=== PATIENT | male | born 2000 | race Two or more races ===

== ENCOUNTER 2023-10-07 10:26 | Inpatient (IN) ==
[2023-10-07 11:04] LABS: Basophils # (auto) 0.04 K/uL (0.00-0.20); Basophils % (auto) 0.5 %; Eosinophils # (auto) 0.04 K/uL (0.00-0.50); Eosinophils % (auto) 0.5 %; Hematocrit (blood only) 44.3 % (42.0-52.0); Hemoglobin 14.6 g/dl (14.0-18.0); Immature Granulocytes # (auto) 0.02 K/uL (0.01-0.20); Immature Granulocytes % (auto) 0.2 %; Lymphocytes # (auto) 1.71 K/uL (1.20-3.40); Lymphocytes % (auto) 19.8 %; Mean Corpuscular Hemoglobin 26.8 pg (25.0-34.0); Mean Corpuscular Volume 81.3 fL (80.0-100.0); Mean Platelet Volume 9.9 fL (9.4-12.4); Monocytes # (auto) 0.71 K/uL (0.11-0.59); Monocytes % (auto) 8.2 %; Neutrophils % (auto) 70.8 %; Platelet Count 243 K/uL (130-400); RDW Standard Deviation 37.9 fL (36.4-46.3); Red Blood Count 5.45 M/uL (4.70-6.10); White Blood Count 8.62 K/ul (4.8-10.8)
[2023-10-07 11:54] LABS: Alanine Aminotransferase 482 U/L (7-52); Albumin Globulin Ratio 1.4 (0.9-2); Albumin Level 4.2 gm/dl (3.4-5.0); Alkaline Phosphatase 49 U/L (34-104); Anion Gap 5 (3-11); BUN Creatinine Ratio 10.9 (10-20); Bilirubin,Total 0.6 mg/dl (0.2-1.0); Blood Urea Nitrogen 12 mg/dl (6-23); Calcium 9.4 mg/dl (8.6-10.3); Carbon Dioxide 25 mmol/L (21-32); Chloride 107 mmol/L (98-107); Creatine Kinase > 100000 U/L (30-223); Creatinine Clr Calc Pharmacy 107.8 ml/min; Est GFR (African American) 109.1 ml/min; Est GFR (Non-African American) 94.1 ml/min; Globulin 3.1 gm/dl (2.5-4.0); Glucose 98 mg/dl (70-99(Fasting)); Lipase 16 U/L (11-82); Sodium 137 mmol/L (136-145); Total Protein 7.3 gm/dl (6.0-8.3)
[2023-10-07] MEDS: SODIUM CHLORIDE 0.9% 1,000 ML IV SCH ×2 (12:19→14:47)
[2023-10-07] MEDS: SODIUM CHLORIDE 0.9% 1,000 ML IV ONE (12:19)
--- NOTE | 2023-10-07 12:40 | History & Physical Report ---
Date of Service October 07, 2023 Assessment & Plan (1) Rhabdomyolysis: Plan: This is a 22yo M with no known PMH presenting from [facility] with with muscle stiffness in lower legs and complaints of urinating blood starting this morning with labwork consistent with rhabdomyolysis. Rhabdomyolysis From rigorous exercise yeserday CK >100,000, Cr 1.10 (baseline unknown), transaminitis as below, UA with 3+ blood and trace protein Received 2L NSS bolus in ED, will continue fluids at 200ml/hr Discussed with Dr. Shearer- as long as making adequate urine, no need to start lasix yet Strict I&Os Repeat BMP, CK, mag and phos this afternoon (2) Transaminitis: Plan: AST 1869 -> 2026, ALT 447 -> 482 in setting of rhabdo as above Repeat CMP in AM (3) Insomnia: Plan: Lizandro BOJORQUEZ per outpatient meds. Denies h/o mood disorder DVT Ppx: early ambulation Code status: FULL PCP: CARTER Woodard Dispo: Admitted to PCU Patient seen in collaboration with Dr. Stephens. Please see addendum. I spent a total of 75 minutes coordinating, documenting, and providing care for this patient excluding time spent in the performance of separately billed services. History of Present Illness Chief Complaint: leg pain, hematuria Primary Care Provider: CARTER Woodard This is a 22yo M with no known PMH presenting from [facility] with with muscle stiffness in lower legs and complaints of urinating blood starting this morning. Patient out for the first time in 2 months yesterday and did a hard workout. Since then, he developed dark urine and aching in both legs. Denies any F/C, headache, CP, SOB, N/V, abd pain, dysuria, diarrhea or constipation. Only medication he takes is Seandon HS to help with sleep, per patient. Denies smoking history while incarcerated. Allergies Allergy/AdvReac Type Severity Reaction Status Date / Time No Known Allergies Allergy Unverified 10/07/23 12:48 Home Medications Medication Instructions Recorded Confirmed Type ziprasidone HCl 20 mg capsule 20 mg PO HS 10/07/23 10/07/23 History (Lizandro) Past Med/Surg History Medical History (Updated 10/07/23 @ 14:44 by Gabbi Covington PA-C) No pertinent past medical history Insomnia Surgical History No pertinent past surgical history Family History Other Diabetes Hypertension Social History Smoking Status: Never smoker Hx Alcohol Use: No Hx Substance Use: No Feels Safe at Home: Yes Review of Systems Review of Systems: At least ten systems reviewed and negative except as noted in the HPI. Physical Exam Physical Exam: Please see Dr. Stephens' addendum for physical exam. Results & Data Results & Data Vital Signs (Past 12 Hours) Vital Signs Temp Pulse Pulse Resp BP BP Pulse Ox 10/07/23 12:21 72 16 161/94 H 98 10/07/23 10:30 36.6 C 91 H 20 165/104 H 99 O2 Del Method 10/07/23 12:21 Room Air 10/07/23 10:30 Room Air Laboratory Results Short CBC 10/07/23 Range/Units 10:45 WBC 8.62 (4.8-10.8) K/ul Hgb 14.6 (14.0-18.0) g/dl Hct 44.3 (42.0-52.0) % Plt Count 243 (130-400) K/uL BMP 10/07/23 10/07/23 10:45 12:04 Sodium 137 Potassium TNP 4.3 Chloride 107 Carbon Dioxide 25 BUN 12 Creatinine 1.10 Glucose 98 Calcium 9.4 Cardiac Enzymes 10/07/23 Range/Units 10:45 Total Creatine Kinase > 666852 H (30-223) U/L Liver Function 10/07/23 Range/Units 10:45 Total Bilirubin 0.6 (0.2-1.0) mg/dl AST TNP ALT 482 H (7-52) U/L Alkaline Phosphatase 49 (34-104) U/L Albumin 4.2 (3.4-5.0) gm/dl Urine 10/07/23 Range/Units Unknown Urine Color Yellow Urine Appearance Clear (Clear) Urine pH 7.0 (4.5-7.5) Ur Specific [place] 1.005 (1.000-1.030) Urine Protein Trace H (Negative) Urine Glucose (UA) Negative (Negative) Code Status & VTE Plan VTE Prophylaxis Plan VTE Prophylaxis will be ordered: Yes Supervising Physician Co-Signing Physician Notes I have seen and discussed the case with the collaborating advanced practitioner. I agree with the above H&P. I have reviewed and confirmed the patients medical history, the findings on physical examination, and the patients diagnosis and treatment plan with Adria MAE and agree with the information documented. In short, Mr. Castle is a 22 year old gentleman with no significant medical history who is admitted due to rhabdomyolysis. Patient reports starting to work out after 2 months hiatus--followed by severe leg pain and what appeared to be hematuria. Labs revealed high CK >100,000 UA with blood no RBC, Cr at 1.1 no baseline. GENERAL APPEARANCE: AxOx4, generally well-appearing male no acute distress. HEENT: NC, AT. MMM. EOMI, clear conjunctiva, oropharynx clear. NECK: Supple without lymphadenopathy. No stiffness or restricted ROM. HEART: Normal rate and regular rhythm, normal S1/S1, no m/r/g LUNGS: CTAB, moving air well. No crackles or wheezes are heard. ABDOMEN: Soft, nontender, nondistended with good bowel sounds heard. EXTREMITIES: Without cyanosis, clubbing or edema. NEUROLOGICAL: Grossly nonfocal. Alert and oriented, moving all 4 extremities. CN not formally tested but appear grossly intact. Observed to ambulate with normal gait. Skin: Warm and dry without any rash. : #Severe nontraumatic rhabdomyolysis secondary to increased exertion -IVF @200cc/hour for aggressive hydration Repeat CK and BMP this afternoon Trend am CK Nephrology on consult Monitor Strict I/Os--if urine output less than.5ml/hr, add IV lasix Rest of plan as above I spent a total of 25 minutes coordinating, documenting, and providing care for this patient excluding time spent in the performance of separately billed s ervices. All of the aforementioned completed outside of collaborating with the assigned advanced practitioner for a full treatment plan. I have reviewed the advanced practitioner's documentation, and I agree with, and take responsibility for the plan of care
[2023-10-07 12:59] LABS: Potassium 4.3 mmol/L (3.5-5.1)
[2023-10-07 13:04] LABS: Appearance Urine Clear (Clear); Bacteria Urine Automated None Seen (None Seen); Bilirubin Urine Negative (Negative); Blood Urine 3+ (Negative); Cast Urine Automated 0-2 /lpf (0-2); Color Urine Yellow; Epithelial Cell Urine Auto 0-2 /hpf (0-2); Glucose Urine UA Negative (Negative); Ketones Urine Negative (Negative); Leukocyte Esterase Urine Negative (Negative); Nitrite Urine Negative (Negative); Protein Urine Trace (Negative); RBC Urine Automated 0-2 /hpf (0-2); Specific Gravity Urine 1.005 (1.000-1.030); Urobilinogen Urine Negative (Negative); WBC Urine Automated 0-5 /hpf (0-5)
[2023-10-07 13:39] LABS: Magnesium 2.3 mg/dl (1.7-2.4); Phosphorus 4.1 mg/dl (2.5-4.9)
[2023-10-07] MEDS ORDERED: ACETAMINOPHEN 325 MG TAB PO PRN (15:44)
[2023-10-07] MEDS ORDERED: ONDANSETRON INJ 2 MG/ML 2 ML VIAL IV PRN (15:44)
[2023-10-07 17:17] LABS: Anion Gap 3 (3-11); BUN Creatinine Ratio 8.5 (10-20); Blood Urea Nitrogen 10 mg/dl (6-23); Calcium 8.8 mg/dl (8.6-10.3); Carbon Dioxide 29 mmol/L (21-32); Chloride 110 mmol/L (98-107); Creatinine Clr Calc Pharmacy 101.4 ml/min; Est GFR (African American) 101.2 ml/min; Est GFR (Non-African American) 87.4 ml/min; Glucose 94 mg/dl (70-99(Fasting)); Potassium 4.6 mmol/L (3.5-5.1); Sodium 142 mmol/L (136-145)
[2023-10-07 17:34] LABS: Magnesium 2.2 mg/dl (1.7-2.4); Phosphorus 3.4 mg/dl (2.5-4.9)
[2023-10-07 18:00] LABS: Creatine Kinase > 100000 U/L (30-223)
[2023-10-07] MEDS ORDERED: LABETALOL HCL IV 5 MG/ML 20ML IV PRN (18:58)
--- NOTE | 2023-10-07 21:25 | Emergency Department Note ---
History of Present Illness General Chief complaint: Hematuria Stated complaint: BLOOD IN URINE, RIGHT AND LEFT LEG SWELLING Time Seen by Provider: 10/07/23 10:59 History of Present Illness Provider complaint: Hematuria rhabdomyolysis 22-year-old male inmate presents to the emergency in police custody for hematuria and rhabdomyolysis. Patient reports he was doing a very hard workout while in senior care the other day. No falls or traumas. He states he is having severe muscle aches and has been urinating blood. Retirement physician referred the patient in for elevated CK. Home Medications Medication Instructions Recorded Confirmed Type ziprasidone HCl 20 mg capsule 20 mg PO HS 10/07/23 10/07/23 History (Lizandro) Allergies Allergy/AdvReac Type Severity Reaction Status Date / Time No Known Allergies Allergy Unverified 10/07/23 12:48 Past Med/Surg History Medical History No pertinent past medical history Insomnia Surgical History No pertinent past surgical history Family History Other Diabetes Hypertension Social History Smoking Status: Never smoker Hx Alcohol Use: No Hx Substance Use: No Feels Safe at Home: Yes Physical Exam Vital Signs Vital Signs - 24 hr 10/07/23 10:30 10/07/23 12:21 Temperature 36.6 C Temperature Source Temporal Artery Scan Pulse Rate 91 H Pulse Rate [Finger] 72 Respiratory Rate 20 16 Respiratory Effort / Characteristics Non-Labored Non-Labored Spontaneous Respiratory Depth Normal Normal Respiratory Pattern Regular Blood Pressure 165/104 H Blood Pressure [Right Arm] 161/94 H Blood Pressure Mean 124 Blood Pressure Mean [Right Arm] 116 Pulse Oximetry 99 98 Oxygen Delivery Method Room Air Room Air Sepsis Recent Fever Within 48 Hours No Sepsis New/Unexplained Change in Mental Status No Sepsis Action Taken by Nursing No Action Required Physical Exam GENERAL: oriented to person, place, and time. appears well-developed and well- nourished. Patient in handcuffs with correctional officers at bedside. HENT: Exam performed. - Head: Normocephalic and atraumatic. EYES: Conjunctivae and EOM are normal. Right eye exhibits no discharge. Left eye exhibits no discharge. No scleral icterus. NECK: Normal range of motion. Neck supple. No JVD present. CV: Normal rate, regular rhythm, normal heart sounds and intact distal pulses. There is no peripheral edema. Palpable radial pulses bue. PULM/CHEST: Effort normal and breath sounds normal. No respiratory distress. No stridor. no wheezes. no rales. ABD: The abdomen is soft. There is no tenderness. NEURO: Motor and sensation grossly intact. SKIN: Skin is warm and dry. He is not diaphoretic. PSYCH: normal mood and affect. Behavior is normal. Judgment and thought content normal. Course Course 1059: The patient was evaluated in room B8. A complete history and physical exam was performed Administered Medications Sodium Chloride (Nss) 1,000 mls @ 200 mls/hr IV .Q5H HAYDEE Stop: 11/06/23 13:44 Last Admin: 10/07/23 20:01 Dose: 200 mls/hr Documented By: [facility] Infusion: 10/07/23 19:47 Dose: Infused Documented By: [facility] Admin: 10/07/23 14:47 Dose: 200 mls/hr Documented By: Discontinued Medications Sodium Chloride (Nss) 1,000 mls @ 999 mls/hr IV .Q1H1M HAYDEE Stop: 10/07/23 13:45 Last Infusion: 10/07/23 14:19 Dose: Infused Documented By: Admin: 10/07/23 13:48 Dose: 999 mls/hr Documented By: Infusion: 10/07/23 13:20 Dose: Infused Documented By: Admin: 10/07/23 12:19 Dose: 999 mls/hr Documented By: Sodium Chloride (Nss) 1,000 mls @ 999 mls/hr IV .Q1H1M ONE Stop: 10/07/23 13:00 Last Infusion: 10/07/23 13:48 Dose: Infused Documented By: Admin: 10/07/23 12:19 Dose: 999 mls/hr Documented By: Medical Decision Making Laboratory Data Attestation: I reviewed the patient's lab results. 10/07/23 10:45 10/07/23 16:43 Lab Results 10/07/23 10/07/23 10/07/23 Range/Units 10:45 12:04 12:15 WBC 8.62 (4.8-10.8) K/ul RBC 5.45 (4.70-6.10) M/uL Hgb 14.6 (14.0-18.0) g/dl Hct 44.3 (42.0-52.0) % MCV 81.3 (80.0-100.0) fL MCH 26.8 (25.0-34.0) pg MCHC 33.0 (32.0-36.0) g/dL RDW Std Deviation 37.9 (36.4-46.3) fL RDW Coeff of Fadi 13.0 (11.5-14.5) % Plt Count 243 (130-400) K/uL MPV 9.9 (9.4-12.4) fL Immature Gran % (Auto) 0.2 % Neut % (Auto) 70.8 % Lymph % (Auto) 19.8 % [place] % (Auto) 8.2 % Eos % (Auto) 0.5 % Baso % (Auto) 0.5 % Neut # (Auto) 6.10 (1.40-6.50) K/uL Lymph # (Auto) 1.71 (1.20-3.40) K/uL [place] # (Auto) 0.71 H (0.11-0.59) K/uL Eos # (Auto) 0.04 (0.00-0.50) K/uL Baso # (Auto) 0.04 (0.00-0.20) K/uL Immature Gran # (Auto) 0.02 (0.01-0.20) K/uL Sodium 137 (136-145) mmol/L Potassium TNP 4.3 Chloride 107 (98-107) mmol/L Carbon Dioxide 25 (21-32) mmol/L Anion Gap 5 (3-11) BUN 12 (6-23) mg/dl Creatinine 1.10 (0.6-1.4) mg/dl Est Cr Clr Drug Dosing 107.8 ml/min Est GFR ( Amer) 109.1 ml/min Est GFR (Non-Af Amer) 94.1 ml/min BUN/Creatinine Ratio 10.9 (10-20) Glucose 98 (70-99(Fasting)) mg/dl Calcium 9.4 (8.6-10.3) mg/dl Phosphorus 4.1 (2.5-4.9) mg/dl Magnesium 2.3 (1.7-2.4) mg/dl Total Bilirubin 0.6 (0.2-1.0) mg/dl AST TNP 2027 H ALT 482 H (7-52) U/L Alkaline Phosphatase 49 (34-104) U/L Total Creatine Kinase > 071678 H (30-223) U/L Total Protein 7.3 (6.0-8.3) gm/dl Albumin 4.2 (3.4-5.0) gm/dl Globulin 3.1 (2.5-4.0) gm/dl Albumin/Globulin Ratio 1.4 (0.9-2) Lipase 16 (11-82) U/L MDM Narrative Vital signs stable. Labs show a CK greater 100,000. Creatinine 1.1. Patient aggressively hydrated with 3 L normal saline bolus and [facility] Impression & Plan Rhabdomyolysis Discharge Plan Visit Data Chief Complaint: Hematuria Stated Complaint: BLOOD IN URINE, RIGHT AND LEFT LEG SWELLING ED Provider: uAstin Don Discharge Problem: Rhabdomyolysis Patient Disposition: Admitted As Inpatient Discharge Instructions Interventions: ED Discharge Assessment Last Done: 10/07/23 15:44 Discharge Problem: Rhabdomyolysis Qualifiers: Rhabdomyolysis type: non-traumatic Qualified Code(s): M62.82 - Rhabdomyolysis
[2023-10-08 04:08] LABS: Hematocrit (blood only) 38.9 % (42.0-52.0); Hemoglobin 12.8 g/dl (14.0-18.0); Mean Corpuscular Hemoglobin 26.7 pg (25.0-34.0); Mean Corpuscular Hgb Conc 32.9 g/dL (32.0-36.0); Mean Corpuscular Volume 81.2 fL (80.0-100.0); Mean Platelet Volume 9.7 fL (9.4-12.4); Platelet Count 213 K/uL (130-400); RDW Coefficient of Variation 12.9 % (11.5-14.5); RDW Standard Deviation 38.1 fL (36.4-46.3); Red Blood Count 4.79 M/uL (4.70-6.10)
[2023-10-08 04:16] LABS: Alanine Aminotransferase 379 U/L (7-52); Albumin Globulin Ratio 1.3 (0.9-2); Albumin Level 3.5 gm/dl (3.4-5.0); Alkaline Phosphatase 41 U/L (34-104); Anion Gap 7 (3-11); BUN Creatinine Ratio 10.6 (10-20); Bilirubin,Total 0.4 mg/dl (0.2-1.0); Blood Urea Nitrogen 12 mg/dl (6-23); Calcium 8.7 mg/dl (8.6-10.3); Carbon Dioxide 24 mmol/L (21-32); Chloride 109 mmol/L (98-107); Est GFR (African American) 105.6 ml/min; Est GFR (Non-African American) 91.1 ml/min; Globulin 2.6 gm/dl (2.5-4.0); Glucose 98 mg/dl (70-99(Fasting)); Magnesium 1.9 mg/dl (1.7-2.4); Phosphorus 4.4 mg/dl (2.5-4.9); Potassium 3.9 mmol/L (3.5-5.1); Sodium 140 mmol/L (136-145); Total Protein 6.1 gm/dl (6.0-8.3)
[2023-10-08 04:37] LABS: Aspartate Aminotransferase 1387 U/L (13-39)
[2023-10-08 05:25] LABS: Creatine Kinase > 100000 U/L (30-223)
--- NOTE | 2023-10-08 11:16 | Nephrology Consultation ---
Date of Consultation October 08, 2023 Assessment & Plan (1) Rhabdomyolysis: Despite CK of > 100 K he is not any renal issues. I gues young age no Comorbid disease gave him that cushion !!! Good urine output and good renal function and electrolytes. The danger phase is gone and expect CK to come down. However his level is still very high and we need to continue the high iv fluid rate to maintain high urine output. Check CK daily and renal panel and mag. I and O must be charted and they Should be similar. So far it is matching. History of Present Illness Attending Physician: Morgan Morales MD History of Present Illness 22/M from skilled nursing with no known PMH presented with with muscle stiffness in lower legs and complaints of urinating blood which started yesterday Morning. Patient for the first time in 2 months did a hard workout one day prior. Since then, he developed dark urine and aching in both legs. Found to have CK > 573148. but normal renal function. Since admission lot of iv fluids and lot of urine--matching I and O. renal panel still good. ROS---see HPI. Denies any F/C, headache, CP, SOB, N/V, abd pain, dysuria, diarrhea or constipation. Only medication he takes is Geodon HS to help with sleep, per patient. Denies smoking history while incarcerated. Physical Exam GENERAL: oriented to person, place, and time. Appears well-developed and well- nourished. HENT: MM moist. neck supple. No JVD. CV: Normal rate, regular rhythm, normal heart sounds. no peripheral edema. CHEST: Effort normal and breath sounds normal. No respiratory distress. No stridor. no wheezes. no rales. ABD: soft. There is no tenderness. NEURO: Motor and sensation grossly intact. SKIN: Skin is warm and dry. He is not diaphoretic. PSYCH: normal mood and affect. Behavior is normal. Judgment and thought content normal. 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 Required: No Feels Safe at Home: Yes Assistive Devices: None Results & Data Vital Signs (Past 12 Hours) Vital Signs Pulse Resp BP Pulse Ox O2 Del Method 10/08/23 07:18 85 10/08/23 06:00 84 18 128/82 96 Room Air 10/08/23 05:00 78 16 144/85 H 96 Room Air 10/08/23 04:00 81 18 136/72 95 Room Air 10/08/23 03:00 89 22 134/71 97 Room Air 10/08/23 02:00 76 16 117/60 95 Room Air 10/08/23 01:30 90 18 98 Room Air 10/08/23 01:14 82 21 144/78 H 96 10/08/23 01:00 82 20 144/78 H 97 Room Air 10/08/23 00:00 87 23 96 Room Air 10/07/23 23:30 87 27 H 97 Room Air Laboratory Results Reviewed Diagnostic Findings reviewed (1) Rhabdomyolysis Rhabdomyolysis type: non-traumatic Qualified Code(s): M62.82 - Rhabdomyolysis
--- NOTE | 2023-10-08 17:12 | Hospitalist Progress Note ---
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 He is making good amount of urine (2) Transaminitis: Plan: AST 1869 -> 2026, ALT 447 -> 482 in setting of rhabdo as above Repeat CMP in AM (3) Insomnia: Plan: Lizandro HS per outpatient meds. Denies h/o mood disorder DVT Ppx: Subcu Lovenox Disposition-pending medical stability. Continue IVF for significant rhabdomyolysis. Discharge back to shelter once stable Time spent-approximately 35 minutes Admission and Anticipated Discharge Date Admission Date: October 07, 2023 Subjective Patient was seen and examined at bedside. He feels better. The pain and stiffness has improved. He is making good amount of urine. No fever, chills, chest pain or shortness of, nausea or vomiting Review of Systems Review of Systems: All systems reviewed & are unremarkable except as noted in Subjective Physical Exam Physical Exam: General: Lying comfortably in bed, not in distress, on room air HEENT: EOMI, [place], MMM Chest: Clear breath sounds bilaterally, no wheezes or crackles CVS: Regular rate and rhythm, normal heart sounds, no murmur Abdomen: Soft, non tender, not distended, normal bowel sounds Neuro: Awake, alert, oriented, conversing well, non focal Extremities: No cyanosis, clubbing or edema Results & Data Results & Data Vital Signs (Past 12 Hours) Vital Signs Temp Pulse Pulse Resp BP BP Pulse Ox 10/08/23 15:24 37.1 C 94 H 16 149/90 H 98 10/08/23 13:00 83 18 134/80 97 10/08/23 07:18 85 10/08/23 06:00 84 18 128/82 96 O2 Del Method 10/08/23 15:24 Room Air 10/08/23 13:00 Room Air 10/08/23 07:18 10/08/23 06:00 Room Air (1) Rhabdomyolysis Rhabdomyolysis type: non-traumatic Qualified Code(s): M62.82 - Rhabdomyolysis
[2023-10-09 08:01] LABS: BUN Creatinine Ratio 11.1 (10-20); Calcium 8.8 mg/dl (8.6-10.3); Creatinine Clr Calc Pharmacy 115.2 ml/min; Est GFR (African American) 101.2 ml/min; Est GFR (Non-African American) 87.4 ml/min; Potassium 3.7 mmol/L (3.5-5.1)
[2023-10-09 08:08] LABS: Albumin Globulin Ratio 1.3 (0.9-2); Albumin Level 3.5 gm/dl (3.4-5.0); Bilirubin,Total 0.4 mg/dl (0.2-1.0); Globulin 2.6 gm/dl (2.5-4.0); Total Protein 6.1 gm/dl (6.0-8.3)
--- NOTE | 2023-10-09 09:31 | Nephrology Progress Note ---
Date of Service October 09, 2023 Assessment & Plan Admission and Anticipated Discharge Date Admission Date: October 07, 2023 Subjective Assessment & Plan (1) Rhabdomyolysis: Despite CK of > 100 K he is not any renal issues. I guess young age no Comorbid disease gave him that cushion !!! Good urine output and good renal function and electrolytes. The danger phase is gone and expect CK to come down. However his level is still very high and we need to continue the high iv fluid rate to maintain high urine output. Check CK daily and renal panel and mag. I and O must be charted and they Should be similar. So far it is matching. CK trending down but will likely take few days before safe enough to discharge S---No new issues. Lots of urine and not bloody now. labs getting better. Physical Exam GENERAL: oriented to person, place, and time. Appears well-developed and well- nourished. HENT: MM moist. neck supple. No JVD. CV: Normal rate, regular rhythm, normal heart sounds. no peripheral edema. CHEST: Effort normal and breath sounds normal. No respiratory distress. No stridor. no wheezes. no rales. ABD: soft. There is no tenderness. NEURO: Motor and sensation grossly intact. SKIN: Skin is warm and dry. He is not diaphoretic. PSYCH: normal mood and affect. Behavior is normal. Judgment and thought content normal. Results & Data Vital Signs (Past 12 Hours) Vital Signs Temp Pulse Pulse Resp BP Pulse Ox O2 Del Method 10/09/23 09:23 68 10/09/23 07:48 36.4 C L 88 16 135/81 96 Room Air 10/09/23 02:49 37.4 C 80 18 128/80 97 Room Air 10/08/23 22:20 37.3 C 84 18 137/89 99 Room Air
--- NOTE | 2023-10-09 11:30 | Hospitalist Progress Note ---
Date of Service October 09, 2023 Assessment & Plan (1) Rhabdomyolysis: Plan: 22yo M with no known PMH presenting from [facility] with with muscle stiffness in lower legs and complaints of bloody urine and labwork consistent with rhabdomyolysis. 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 Monitor UO. Trend labs - Nephro following. (2) Transaminitis: Plan: In setting of rhabdomyolysis. LFT trending down. AST 1869 -> 2027->1146 ALT 447 -> 482->360 Repeat CMP in AM (3) Insomnia: Plan: Lizandro HS per outpatient meds. Denies h/o mood disorder Plan DVT prophylaxis: Subcu Lovenox Disposition-pending medical stability. Continue IVF for significant rhabdomyolysis. Discharge back to group home once stable Time spent-approximately 35 minutes Admission and Anticipated Discharge Date Admission Date: October 07, 2023 Subjective Patient was seen and examined at bedside. Continues to feel better. Soreness improving. Making good urine. No more bloody. No fever, chills, chest pain, Shortness of breath, N/V. Review of Systems Review of Systems: All systems reviewed & are unremarkable except as noted in Subjective Physical Exam Physical Exam: General: Lying comfortably in bed, not in distress, on room air HEENT: EOMI, [place], MMM Chest: Clear breath sounds bilaterally, no wheezes or crackles CVS: Regular rate and rhythm, normal heart sounds, no murmur Abdomen: Soft, non tender, not distended, normal bowel sounds Neuro: Awake, alert, oriented, conversing well, non focal Extremities: No cyanosis, clubbing or edema Results & Data Results & Data Vital Signs (Past 12 Hours) Vital Signs Temp Pulse Pulse Resp BP Pulse Ox O2 Del Method 10/09/23 10:43 36.6 C 83 16 129/72 96 Room Air 10/09/23 09:23 68 10/09/23 07:48 36.4 C L 88 16 135/81 96 Room Air 10/09/23 02:49 37.4 C 80 18 128/80 97 Room Air (1) Rhabdomyolysis Rhabdomyolysis type: non-traumatic Qualified Code(s): M62.82 - Rhabdomyolysis
[2023-10-09] MEDS: POLYETHYLENE (MIRALAX) 17 GM PACK PO PRN (20:35)
[2023-10-10 06:17] LABS: BUN Creatinine Ratio 12.2 (10-20); Calcium 9.1 mg/dl (8.6-10.3); Creatinine Clr Calc Pharmacy 117.2 ml/min; Est GFR (African American) 103.4 ml/min; Est GFR (Non-African American) 89.2 ml/min; Potassium 3.8 mmol/L (3.5-5.1)
[2023-10-10 06:38] LABS: Albumin Globulin Ratio 1.3 (0.9-2); Albumin Level 3.5 gm/dl (3.4-5.0); Bilirubin,Total 0.6 mg/dl (0.2-1.0); Globulin 2.8 gm/dl (2.5-4.0); Total Protein 6.3 gm/dl (6.0-8.3)
--- NOTE | 2023-10-10 09:52 | Nephrology Progress Note ---
Date of Service October 10, 2023 Assessment & Plan Admission and Anticipated Discharge Date Admission Date: October 07, 2023 Subjective Assessment & Plan (1) Rhabdomyolysis: Despite CK of > 100 K he is not any renal issues. I guess young age no Comorbid disease gave him that cushion !!! Good urine output and good renal function and electrolytes. The danger phase is gone and expect CK to come down. However his level is still very high and we need to continue the high iv fluid rate to maintain high urine output. Check CK daily and renal panel and mag. I and O must be charted and they Should be similar. So far it is matching. CK and LFT trending down but will likely take few days before safe enough to discharge. S---No new issues. Lots of urine and not bloody now. labs getting better. Physical Exam GENERAL: oriented to person, place, and time. Appears well-developed and well- nourished. HENT: MM moist. neck supple. No JVD. CV: Normal rate, regular rhythm, normal heart sounds. no peripheral edema. CHEST: Effort normal and breath sounds normal. No respiratory distress. No stridor. no wheezes. no rales. ABD: soft. There is no tenderness. NEURO: Motor and sensation grossly intact. SKIN: Skin is warm and dry. He is not diaphoretic. PSYCH: normal mood and affect. Behavior is normal. Judgment and thought content normal. Results & Data Vital Signs (Past 12 Hours) Vital Signs Temp Pulse Resp BP BP Pulse Ox O2 Del Method 10/10/23 07:30 36.6 C 82 16 128/69 97 Room Air 10/10/23 03:25 36.6 C 84 20 152/89 H 96 Room Air 10/09/23 23:22 37.2 C 72 18 142/86 H 97 Room Air
--- NOTE | 2023-10-10 10:40 | Hospitalist Progress Note ---
Date of Service October 10, 2023 Assessment & Plan (1) Rhabdomyolysis: Plan: 22yo M with no known PMH presenting from [facility] with with muscle stiffness in lower legs and complaints of bloody urine and labwork consistent with rhabdomyolysis. 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 Monitor UO. Trend labs - Nephro following. (2) Transaminitis: Plan: In setting of rhabdomyolysis. LFT trending down. AST 1869 -> 2027->1146->750 ALT 447 -> 482->360->331 Repeat CMP in AM (3) Insomnia: Plan: Lizandro BOJORQUEZ per outpatient meds. Denies h/o mood disorder Plan DVT prophylaxis: Subcu Lovenox Disposition- CK still significantly elevated and on IVF. Discharge back to retirement likely on Thursday Time spent-approximately 35 minutes Admission and Anticipated Discharge Date Admission Date: October 07, 2023 Subjective Patient was seen and examined at bedside. Feeling better. Sore muscles resolved. No N/V. Urinating normally. Regular BM. Review of Systems Review of Systems: All systems reviewed & are unremarkable except as noted in Subjective Physical Exam Physical Exam: General: Lying comfortably in bed, not in distress, on room air HEENT: EOMI, LAKEISHA, MMM Chest: Clear breath sounds bilaterally, no wheezes or crackles CVS: Regular rate and rhythm, normal heart sounds, no murmur Abdomen: Soft, non tender, not distended, normal bowel sounds Neuro: Awake, alert, oriented, conversing well, non focal Extremities: No cyanosis, clubbing or edema Results & Data Results & Data Vital Signs (Past 12 Hours) Vital Signs Temp Pulse Pulse Resp BP BP Pulse Ox 10/10/23 07:30 36.6 C 82 16 128/69 97 10/10/23 06:00 67 10/10/23 03:25 36.6 C 84 20 152/89 H 96 10/09/23 23:22 37.2 C 72 18 142/86 H 97 O2 Del Method 10/10/23 07:30 Room Air 10/10/23 06:00 10/10/23 03:25 Room Air 10/09/23 23:22 Room Air Laboratory Results [facility] 10/10/23 05:36 Sodium 139 Potassium 3.8 Chloride 106 Carbon Dioxide 27 BUN 14 Creatinine 1.15 Glucose 93 Calcium 9.1 Cardiac Enzymes 10/10/23 Range/Units 05:36 Total Creatine Kinase 88312 H (30-223) U/L Liver Function 10/10/23 Range/Units 05:36 Total Bilirubin 0.6 (0.2-1.0) mg/dl AST 750 H (13-39) U/L ALT 331 H (7-52) U/L Alkaline Phosphatase 44 (34-104) U/L Albumin 3.5 (3.4-5.0) gm/dl Medications Administered Current Inpatient Medications Acetaminophen (Acetaminophen 325 Mg Tab) 650 mg PO Q4H PRN PRN Reason: Pain or Fever Stop: 11/06/23 15:43 Sodium Chloride (Nss) 1,000 mls @ 200 mls/hr IV .Q5H HAYDEE Stop: 11/06/23 13:44 Last Admin: 10/10/23 06:36 Dose: 200 mls/hr Labetalol HCl (Labetalol Hcl Iv 5 Mg/Ml 20ml) 5 mg IV Q6H PRN PRN Reason: SBP >170 Stop: 11/06/23 18:57 Ondansetron HCl (Ondansetron Inj 2 Mg/Ml 2 Ml Vial) 4 mg IV Q6H PRN PRN Reason: Nausea Stop: 11/06/23 15:43 Polyethylene Glycol (Polyethylene (Miralax) 17 Gm Pack) 17 gm PO DAILY PRN PRN Reason: Constipation Stop: 11/06/23 15:43 Last Admin: 10/09/23 20:35 Dose: 17 gm Ziprasidone (Ziprasidone Hcl 20 Mg Cap) 20 mg PO HS HAYDEE Stop: 11/06/23 20:59 Last Admin: 10/09/23 20:35 Dose: 20 mg (1) Rhabdomyolysis Rhabdomyolysis type: non-traumatic Qualified Code(s): M62.82 - Rhabdomyolysis
[2023-10-11 06:50] LABS: BUN Creatinine Ratio 15.2 (10-20); Calcium 8.9 mg/dl (8.6-10.3); Creatinine Clr Calc Pharmacy 136.1 ml/min; Est GFR (African American) 123.9 ml/min; Est GFR (Non-African American) 106.9 ml/min; Potassium 3.6 mmol/L (3.5-5.1)
[2023-10-11 07:11] LABS: Albumin Globulin Ratio 1.2 (0.9-2); Albumin Level 3.3 gm/dl (3.4-5.0); Bilirubin,Total 0.3 mg/dl (0.2-1.0); Globulin 2.7 gm/dl (2.5-4.0)
--- NOTE | 2023-10-11 12:36 | Hospitalist Progress Note ---
Date of Service October 11, 2023 Assessment & Plan (1) Rhabdomyolysis: Plan: 22yo M with no known PMH presenting from [facility] with with muscle stiffness in lower legs and complaints of bloody urine and labwork consistent with rhabdomyolysis. 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 Renal function stable with Cr at 1 - Continue IVF. Monitor UO. Trend labs - Nephro following. (2) Transaminitis: Plan: In setting of rhabdomyolysis. LFT trending down. AST 1869 -> 2027->1146->750->374 ALT 447 -> 482->360->331->364 Repeat CMP in AM (3) Insomnia: Plan: Lizandro BOJORQUEZ per outpatient meds. Denies h/o mood disorder Plan DVT prophylaxis: Subcu Lovenox Disposition- CK still significantly elevated and on IVF. Discharge back to nursing home likely tomorrow Time spent-approximately 35 minutes Admission and Anticipated Discharge Date Admission Date: October 07, 2023 Subjective Patient was seen and examined at bedside. No new issues. No fever, chills, chest pain, SOB, N/V. Muscle soreness resolved. Review of Systems Review of Systems: All systems reviewed & are unremarkable except as noted in Subjective Physical Exam Physical Exam: General: Lying comfortably in bed, not in distress, on room air HEENT: EOMI, LAKEISHA, MMM Chest: Clear breath sounds bilaterally, no wheezes or crackles CVS: Regular rate and rhythm, normal heart sounds, no murmur Abdomen: Soft, non tender, not distended, normal bowel sounds Neuro: Awake, alert, oriented, conversing well, non focal Extremities: No cyanosis, clubbing or edema Results & Data Results & Data Vital Signs (Past 12 Hours) Vital Signs Temp Pulse Resp BP Pulse Ox O2 Del Method 10/11/23 07:22 36.6 C 75 16 151/80 H 97 Room Air Laboratory Results [facility] 10/11/23 05:32 Sodium 139 Potassium 3.6 Chloride 107 Carbon Dioxide 26 BUN 15 Creatinine 0.99 Glucose 95 Calcium 8.9 Cardiac Enzymes 10/11/23 Range/Units 05:32 Total Creatine Kinase 02850 H (30-223) U/L Liver Function 10/11/23 Range/Units 05:32 Total Bilirubin 0.3 (0.2-1.0) mg/dl AST 374 H (13-39) U/L ALT 264 H (7-52) U/L Alkaline Phosphatase 39 (34-104) U/L Albumin 3.3 L (3.4-5.0) gm/dl (1) Rhabdomyolysis Rhabdomyolysis type: non-traumatic Qualified Code(s): M62.82 - Rhabdomyolysis
[2023-10-12 07:38] LABS: BUN Creatinine Ratio 13.5 (10-20); Calcium 9.1 mg/dl (8.6-10.3); Creatinine Clr Calc Pharmacy 129.6 ml/min; Est GFR (African American) 116.7 ml/min; Est GFR (Non-African American) 100.7 ml/min; Potassium 4.2 mmol/L (3.5-5.1)
[2023-10-12 07:39] LABS: Albumin Globulin Ratio 1.3 (0.9-2); Albumin Level 3.4 gm/dl (3.4-5.0); Bilirubin,Total 0.4 mg/dl (0.2-1.0); Globulin 2.6 gm/dl (2.5-4.0)
--- NOTE | 2023-10-12 12:37 | Hospitalist Progress Note ---
Date of Service October 12, 2023 Assessment & Plan (1) Rhabdomyolysis: Plan: 22yo M with no known PMH presenting from [facility] with with muscle stiffness in lower legs and complaints of bloody urine and labwork consistent with rhabdomyolysis. 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 Renal function stable with Cr at 1 - Continue IVF. Monitor UO. Trend labs - Nephro following. (2) Transaminitis: Plan: In setting of rhabdomyolysis. LFT trending down. AST 1869 -> 2027->1146->750->374->215 ALT 447 -> 482->360->331->364->241 Repeat CMP in AM (3) Insomnia: Plan: Lizandro BOJORQUEZ per outpatient meds. Denies h/o mood disorder Plan DVT prophylaxis: Subcu Lovenox Disposition-I spoke to the skilled nursing director who did not feel comfortable taking the patient back with current CPK level. Will continue IVF for today and recheck labs in a.m. Time spent- approximately 35 minutes Admission and Anticipated Discharge Date Admission Date: October 07, 2023 Subjective Patient was seen and examined at bedside. He feels fine. No more muscle aches. Urinating fine. Urine is clear. No nausea, vomiting, chest pain or shortness of breath. Review of Systems Review of Systems: All systems reviewed & are unremarkable except as noted in Subjective Physical Exam Physical Exam: General: Lying comfortably in bed, not in distress, on room air HEENT: EOMI, LAKEISHA, MMM Chest: Clear breath sounds bilaterally, no wheezes or crackles CVS: Regular rate and rhythm, normal heart sounds, no murmur Abdomen: Soft, non tender, not distended, normal bowel sounds Neuro: Awake, alert, oriented, conversing well, non focal Extremities: No cyanosis, clubbing or edema Results & Data Results & Data Vital Signs (Past 12 Hours) Vital Signs Temp Pulse Resp BP Pulse Ox O2 Del Method 10/12/23 07:16 36.5 C 66 16 144/77 H 99 Room Air Laboratory Results [facility] 10/12/23 06:23 Sodium 140 Potassium 4.2 Chloride 105 Carbon Dioxide 28 BUN 14 Creatinine 1.04 Glucose 92 Calcium 9.1 Cardiac Enzymes 10/12/23 Range/Units 06:23 Total Creatine Kinase 5118 H (30-223) U/L Liver Function 10/12/23 Range/Units 06:23 Total Bilirubin 0.4 (0.2-1.0) mg/dl AST 215 H (13-39) U/L ALT 241 H (7-52) U/L Alkaline Phosphatase 39 (34-104) U/L Albumin 3.4 (3.4-5.0) gm/dl (1) Rhabdomyolysis Rhabdomyolysis type: non-traumatic Qualified Code(s): M62.82 - Rhabdomyolysis
--- NOTE | 2023-10-12 16:29 | Nephrology Progress Note ---
Date of Service October 12, 2023 Assessment & Plan (1) Rhabdomyolysis: Plan: Despite CK of > 100 K he has fortunately not had any renal issues. His young age and lack of Comorbid disease gave him that cushion !!! >5L daily urine output and good renal function and electrolytes. The danger phase is gone and expect CK to continue down. >with CK under 5000 will halve NS rate and verify that CK continues to drop; or that it at least does not start to uptrend -con strict I/o -lowered NS to 100 mL hourly Check CK daily and renal panel and mag. Admission and Anticipated Discharge Date Admission Date: October 07, 2023 Subjective no sob, gross hematuria, edema, uncontrolled pain musculoskeletal Review of Systems 2 Review of Systems: All systems reviewed & are unremarkable except as noted in Subjective Physical Exam 2 Constitutional: well developed and well nourished Eyes: EOM intact bilaterally ENMT: Ears: no external ear abnormality Nose: no external nose abnormality Mouth: + dry oral mucous membranes Neck: no nuchal rigidity Respiratory: normal respiratory effort Auscultation: + diminished lung sounds Cardiovascular: RRR, no murmur, no edema Gastrointestinal (Abdomen): Inspection/Auscultation: normal bowel sounds P ercussion/Palpation: abdomen soft; abdomen nontender Musculoskeletal: Extremities: strength 5/5 throughout Skin: no rashes, warm and dry Neurologic: kothari, fluent speech, no tremor Psychiatric: alert, oriented to self and place at least; maneuvers readily/independently/as requested for exam Results & Data Vital Signs (Past 12 Hours) Vital Signs Temp Pulse Resp BP Pulse Ox O2 Del Method 10/12/23 14:53 36.9 C 78 16 155/85 H 95 Room Air 10/12/23 07:16 36.5 C 66 16 144/77 H 99 Room Air Laboratory Results 10/08/23 03:37 10/12/23 06:23 CK 4957 (1) Rhabdomyolysis Rhabdomyolysis type: non-traumatic Qualified Code(s): M62.82 - Rhabdomyolysis
[2023-10-13 07:10] LABS: BUN Creatinine Ratio 16.7 (10-20); Calcium 9.2 mg/dl (8.6-10.3); Creatinine Clr Calc Pharmacy 140.4 ml/min; Est GFR (African American) 128.6 ml/min; Potassium 3.6 mmol/L (3.5-5.1)
[2023-10-13 07:27] LABS: Albumin Globulin Ratio 1.2 (0.9-2); Albumin Level 3.6 gm/dl (3.4-5.0); Bilirubin,Total 0.3 mg/dl (0.2-1.0); Globulin 2.9 gm/dl (2.5-4.0); Total Protein 6.5 gm/dl (6.0-8.3)
--- NOTE | 2023-10-13 10:43 | Discharge Summary ---
Discharge Summary Date of Service October 13, 2023 Notes For Next Care Provider Please repeat CMP and CK in 2-3 days. CK at discharge is 2,909. Peak CK was > 100,000. AST 169 and ALT 262. Peak AST and ALT 2026 and 482 respectively. Medication Changes From Visit None Admission HPI Per Admitting Provider This is a 22yo M with no known PMH presenting from [facility] with with muscle stiffness in lower legs and complaints of urinating blood starting this morning. Patient out for the first time in 2 months yesterday and did a hard workout. Since then, he developed dark urine and aching in both legs. Denies any F/C, headache, CP, SOB, N/V, abd pain, dysuria, diarrhea or constipation. Only medication he takes is Geodon HS to help with sleep, per patient. Denies smoking history while incarcerated. Admission Exam Per Admitting Provider GENERAL APPEARANCE: AxOx4, generally well-appearing male no acute distress. HEENT: NC, AT. MMM. EOMI, clear conjunctiva, oropharynx clear. NECK: Supple without lymphadenopathy. No stiffness or restricted ROM. HEART: Normal rate and regular rhythm, normal S1/S1, no m/r/g LUNGS: CTAB, moving air well. No crackles or wheezes are heard. ABDOMEN: Soft, nontender, nondistended with good bowel sounds heard. EXTREMITIES: Without cyanosis, clubbing or edema. NEUROLOGICAL: Grossly nonfocal. Alert and oriented, moving all 4 extremities. CN not formally tested but appear grossly intact. Observed to ambulate with normal gait. Skin: Warm and dry without any rash. Principal Dx & Hospital Course #1 = Principal Diagnosis (1) Rhabdomyolysis: 22yo M with no known PMH presenting from [facility] with with muscle stiffness in lower legs and complaints of bloody urine and labwork consistent with rhabdomyolysis. 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 Renal function stable with Cr at 1 - He is having great UO. CK is trending down nicely. - Nephro following and appreciate their recommendations - Discussed with [facility] Physician who will accept patient back to [facility] and keep patient on IVF until CK trends below 1,000. Full sign out was given to [facility]. - Patient is encouraged to continue to hydrate well and abstain from physical activity until cleared by physician. (2) Transaminitis: In setting of rhabdomyolysis. LFT trending down. AST 1869 -> 2027->1146->750->374->215 ->169 ALT 447 -> 482->360->331->364->241 -> 262 avoid hepatotoxic agents, limit Tylenol to < 2,000g daily until resolves. (3) Insomnia: Lizandro HS per outpatient meds. Denies h/o mood disorder Plan DVT prophylaxis: Subcu Lovenox Disposition- Discharge to snf today Patient was seen and examined in collaboration with, Dr. Morales, please see addendum A total of 40 minutes was spent coordinating, documenting, and providing care for this patient excluding time spent in the performance of separately billed services. This included personally viewing all current laboratories and imaging studies, medication reconciliation, outpatient chart review, and discussion with specialists. Discharge Exam Gen: WD/WN, NAD, A&O x3 HEENT: Normocephalic, atraumatic, conjunctivae moist, sclerae anicteric, mucous membranes moist. Lung: Clear to Auscultation bilaterally, no wheezes/rales/rhonchi Heart: Regular rate, regular rhythm, no murmurs, rubs, or gallops Abdomen: Soft, NT, ND +BS x 4 Extremities: No edema Skin: Warm, no rash, negative turgor. Updated Medication List Medication Instructions Recorded Confirmed Type ziprasidone HCl 20 mg capsule 20 mg PO HS 10/07/23 10/07/23 History (Lizandro) Hospital Stay Data Consultations 10/07/23 12:29 ED Decision to Admit Stat 10/07/23 13:07 Consult Nephrology Routine Pending Results Patient Have Any Pending Studies at Discharge: No Discharge Instructions Given to Patient (Per Discharging Provider) MEDICATION CHANGES: No medication changes at discharged. Continue Geodon as prescribed. SUMMARY OF TEST RESULTS: You were admitted to hospital secondary to Rhabdomyolysis due to rigorous exercise. Your muscle enzymes were over 100,000. Normal is less than 200. Your condition improved with rest and IV fluids. On day of discharge your muscle enzymes and liver functions remained elevated, but have trended down significantly. You are being discharged back to the [facility]. PENDING TEST RESULTS: None RECOMMENDATIONS FOR FOLLOW-UP: Please stay well hydrated. It is recommended that you drink at least 80 ounces of fluid per day. Recommend that your liver functions and muscle enzymes be repeated daily until returned to normal. Please follow up with your Provider at the [facility]. Do not participate in any physical activity or exercise until you are cleared by the [facility] Physician. No lifting greater than 10 lbs until your activity restriction has been lifted. OTHER INSTRUCTIONS: Seek medical attention if you have: * temperature above 101 * chest pain or trouble breathing * abdominal pain, nausea, vomiting * diarrhea, dark stools or bloody stools * any unanswered questions or concerns Call 911 if symptoms are severe. Please take good care of yourself. It has been a pleasure taking care of you. Please take care of yourself. If you have any questions regarding your recent hospitalization please contact [facility] and request Hieu Winstonist @ [phone]. Total Time Total Time Spent Total Time Spent (In Minutes): 40 minutes Supervising Physician Co-Signing Physician Notes Patient was seen and examined independently at bedside. Chart reviewed. Case discussed with Terri MAE and agree with the documentation above. In summary, this is a 22 year old male sent to the ED from [facility] for exertional rhabdomyolysis after heavy work out. His CK >068857 with transaminitis but no evidence of renal failure. Started on ivf and CK/Transaminases have trended down nicely. His muscle soreness have resolved and urine has been clear. His renal function remains stable. He is clear to go back to the snf. Adequate hydration recommended. Also repeat CMP, CK recommended in the next few days. Rest as per the note above.
--- NOTE | 2023-10-13 10:54 | Nephrology Progress Note ---
Date of Service October 13, 2023 Assessment & Plan (1) Rhabdomyolysis: Plan: Despite CK of > 100 K he has fortunately not had any renal issues. His young age and lack of Comorbid disease gave him that cushion !!! UOP matches IVF input; has good renal function and electrolytes. The danger phase is gone and expect CK to continue down. >continue lower rate NS rate and verify that CK continues to drop; or that it at least does not start to uptrend -con strict I/o -can be d/c w/ CK <3171-3026 (about 5-7X ULN) Check CK daily and renal panel and mag Will sign off; no specific nephro follow up needed unless gross hematuria recurs Care coordinated w/ Dr Morales regarding monitoring, fluids, d/c plan; we are in agreement. Admission and Anticipated Discharge Date Admission Date: October 07, 2023 Subjective no interval clinical events. denies pain musculoskeletal or chest, no sob, n o edema, no gross hematuria, no rash or f Review of Systems 2 Review of Systems: All systems reviewed & are unremarkable except as noted in Subjective Physical Exam 2 Constitutional: well developed and well nourished Eyes: EOM intact bilaterally ENMT: Ears: no external ear abnormality Nose: no external nose abnormality Mouth: + dry oral mucous membranes Neck: no nuchal rigidity Respiratory: normal respiratory effort Auscultation: + diminished lung sounds Cardiovascular: RRR, no murmur, no edema Gastrointestinal (Abdomen): Inspection/Auscultation: normal bowel sounds P ercussion/Palpation: abdomen soft; abdomen nontender Musculoskeletal: Extremities: strength 5/5 throughout Skin: no rashes, warm and dry Results & Data Vital Signs (Past 12 Hours) Vital Signs Temp Pulse Resp BP Pulse Ox O2 Del Method 10/13/23 07:29 36.7 C 54 L 16 130/81 96 Room Air Laboratory Results 10/08/23 03:37 10/13/23 05:55 ck 2909 (1) Rhabdomyolysis Rhabdomyolysis type: non-traumatic Qualified Code(s): M62.82 - Rhabdomyolysis
== END 2023-10-13 12:44 | DRG 558 ==
LOC: ED 10:26 → SUATTDRO 12:38 → EDINP 12:38 → 2S 15:44 → 3E 10-10 14:14